=== PATIENT | male | born 1975 | race Two or more races ===

== ENCOUNTER 2025-08-12 06:52 | Emergency (ER) | payer OTHER ==
[~2025-08-12] VITALS: Ht 172.7 cm; Wt 100.0 kg
--- NOTE | 2025-08-12 07:28 | ED.PDOC ---
HPI Comments This is a 49 year-old male who presents to the ED with a chief complaint of substernal chest pain with associated L shoulder pain as of yesterday. Patient reports high blood pressure upon arrival, 192/121. Patient states he is not currently taking any medication for HTN. Patient has no further complaints at this time and otherwise denies other associated symptoms of abdominal pain, migraine, dizziness, slurred speech, palpitations, or fever. Time Seen by MD: 07:18 Reviewed Notes: Medications, Allergies Information Source: Patient Mode of Arrival: Ambulatory Severity: Moderate Timing: Days Duration: Since onset Prehospital treatment: None Location: Substernal Radiation: Shoulder (L) Onset: At Rest, With Light Exertion, With Heavy Exertion Past Medical History PAST MEDICAL HISTORY: Denies Surgical History (Other): L Ankle Surgery Family History Family History: Reviewed,noncontributory to illness, No family hx of Cancer, No family hx of DM, No family hx of Heart lam, No family hx of HTN, No family hx ofKidney lam, No family hx of Liver lam, No family hx of Lung lam, No family hx of Stroke Social History Smoker: Non-Smoker Alcohol: Denies ETOH Use Drugs: Denies Drug Use Lives In: Home Constitutional: denies: chills, diaphoresis, fatigue, fever, malaise, sweats, weakness, others EENTM: denies: blurred vision, double vision, ear bleeding, ear discharge, ear drainage, ear pain, ear ringing, eye pain, eye redness, hearing loss, mouth pain, mouth swelling, nasal discharge, nose bleeding, nose congestion, nose pain, photophobia, tearing, throat pain, throat swelling, voice changes, others Respiratory: denies: cough, hemoptysis, orthopnea, SOB at rest, shortness of breath, SOB with excertion, stridor, wheezing, others Cardiovascular: reports: chest pain; denies: dizzy spells, diaphoresis, Dyspnea on exertion, edema, irregular heart beat, left arm pain, lightheadedness, palpitations, PND, syncope, others Gastrointestinal: denies: abdomen distended, abdominal pain, blood streaked bowels, constipated, diarrhea, dysphagia, difficulty swallowing, hematemesis, melena, nausea, poor appetite, poor fluid intake, rectal bleeding, rectal pain, vomiting, others Genitourinary: denies: burning, dysuria, flank pain, frequency, hematuria, incontinence, penile discharge, penile sore, pain, testicle pain, testicle swelling, urgency, others Neurological: denies: dizziness, fainting, headache, left sided numbness, left sided weakness, numbness, paresthesia, pre-existing deficit, right sided numbness, right sided weakness, seizure, speech problems, tingling, tremors, weakness, others Musculoskeletal: reports: others (L Shoulder Pain ); denies: back pain, gout, joint pain, joint swelling, muscle pain, muscle stiffness, neck pain Integumetry: denies: bruises, change in color, change in hair/nails, dryness, laceration, lesions, lumps, rash, wounds, others Allergic/Immunocompromised: denies: Difficulty Healing, Frequent Infections, Hives, Itching, others Hematologic/Lymphatic: denies: anemia, blood clots, easy bleeding, easy bruising, swollen glands, others Endocrine: denies: excessive hunger, excessive sweating, excessive thirst, excessive urination, flushing, intolerance to cold, intolerance to heat, unexplained weight gain, unexplained weight loss, others Psychiatric: denies: anxiety, bipolar disorder, depression, hopeless, panic disorder, schizophrenia, sleepless, suicidal, others All Other Systems: Reviewed and Negative Physical Exam General Appearance: Moderate Distress HEENT: Normal ENT Inspection, Pharynx Normal, TMs Normal Neck: Full Range of Motion, Non-Tender, Normal, Normal Inspection Respiratory: Chest Non-Tender, Lungs Clear, No Accessory Muscle Use, No Respiratory Distress, Normal Breath Sounds Cardiovascular: Tachycardia Breast Exam: Deferred Gastrointestinal: No Organomegaly, Non Tender, No Pulsatile Mass, Normal Bowel Sounds, Soft Genitalia: Deferred Pelvic: Deferred Rectal: Deferred Extremities: No calf tenderness, Normal capillary refill, Normal inspection, Normal range of motion, Non-tender, No pedal edema Musculoskeletal : Apperance: Normal Neurologic: Alert, java xml developer II-XII nml as Tested, No Motor Deficits, Normal Affect, Normal Mood, No Sensory Deficits Cerebellar Function: Normal Reflexes: Normal Skin: Dry, Normal Color, Warm Peripheral Pulses: 3+ Radial (R), 3+ Radial (L) Lymphatic: No Adenopathy EKG EKG : Pulse Rate (adult): 109 [place]: Normal Cardiac Rhythm: ST Block: None Hypertrophy: None ST: Normal Was a procedure done? Was a procedure done?: No CP Differential Dx Differential Diagnosis: A-fib, A-Flutter, Angina, Anxiety / Panic Attack, Atrial Dysrhythmia, Electrolyte Disorder, Sinus Tachycardia Differential Diagnosis: HTN Essential Differential Diagnosis: Angina, Chest Wall Pain X-Ray, Labs, Meds, VS Vital Signs Date Time Temp Pulse Resp B/P (MAP) Pulse Ox O2 Delivery O2 Flow Rate FiO2 08/12/25 10:59 76 18 124/85 (98) 96 08/12/25 10:20 124/85 08/12/25 08:00 98.0 89 89 177/107 (130) 99 98.0 08/12/25 07:59 99 08/12/25 07:50 98.0 107 20 178/114 (135) 95 98.0 08/12/25 07:46 178/114 08/12/25 07:40 89 17 99 Room Air* 0 21 08/12/25 07:28 109 08/12/25 06:52 97.1 135 18 192/121 100 97.1 Lab Test 08/12/25 10:32 08/12/25 09:02 08/12/25 07:34 Range/Units Troponin I High Sensitivity 5 4 4 </=54 ng/L White Blood Count 7.3 4.4-10.8 10^3/uL Red Blood Count 5.20 4.5-5.90 10^6/uL Hemoglobin 16.3 13.5-17.5 g/dL Hematocrit 46.4 41.0-53.0 % Mean Corpuscular Volume 89.2 80.0-100.0 fL Mean Corpuscular Hemoglobin 31.4 28.0-32.0 pg Mean Corpuscular Hemoglobin Concent 35.2 32.0-36.0 g/dL Red Cell Distribution Width 12.2 11.8-14.3 % Platelet Count 279 140-450 10^3/uL Mean Platelet Volume 7.7 6.9-10.8 fL Neutrophils (%) (Auto) 66.6 37.0-80.0 % Lymphocytes (%) (Auto) 19.8 10.0-50.0 % Monocytes (%) (Auto) 11.2 0.0-12.0 % Eosinophils (%) (Auto) 1.9 0.0-7.0 % Basophils (%) (Auto) 0.5 0.0-2.0 % Neutrophils # (Auto) 4.8 1.6-8.6 10 ^3/uL Lymphocytes # (Auto) 1.4 0.4-5.4 10 ^3/uL Monocytes # (Auto) 0.8 0-1.3 10 ^3/uL Eosinophils # (Auto) 0.1 0-0.8 10 ^3/uL Basophils # (Auto) 0 0-0.2 10 ^3/uL Nucleated Red Blood Cells 0.1 % Sodium Level 137 136-145 mmol/L Potassium Level 3.3 L 3.5-5.1 mmol/L Chloride Level 104 98-107 mmol/L Carbon Dioxide Level 23 20-31 mmol/L Anion Gap 10 5-15 Blood Urea Nitrogen 18 9-23 mg/dL Creatinine 0.96 0.700-1.30 mg/dL Glomerular Filtration Rate Calc 98 >90 mL/min BUN/Creatinine Ratio 18.8 10.0-20.0 Serum Glucose 100 74-106 mg/dL Calcium Level 9.2 8.7-10.4 mg/dL Current Medications Medications (Trade) Dose Ordered Sig/Gaston Route Start Time Stop Time Status Last Admin Clonidine HCl (Catapres Tablet) 0.2 mg ONCE ONCE PO 08/12/25 07:30 08/12/25 07:31 DC 08/12/25 07:46 Patient alert. Complaining of chest pain. Vitals stable. Answering questions. EKG reviewed does show sinus tachycardia. Blood pressure elevated. He does not take any medication. Was given clonidine. Continues to have discomfort. Was given aspirin. Explained to the patient. Continue monitoring. Images Reviewed?: Images reviewed and evaluated by me Time of 1ST Reevaluation: 08:20 Reevaluation 1ST: Unchanged Patient Education/Counseling: Diagnosis, Treatment Family Education/Counseling: No Family Present SEPSIS Sepsis Screen Physician Orders Chest Portable (08/12/25 07:22) Electrocardigram (08/12/25 09:48) Electrocardigram (08/12/25 10:48) Vital Signs Date Time Temp Pulse Resp B/P (MAP) Pulse Ox O2 Delivery O2 Flow Rate FiO2 08/12/25 10:59 76 18 124/85 (98) 96 08/12/25 10:20 124/85 08/12/25 08:00 98.0 89 89 177/107 (130) 99 98.0 08/12/25 07:59 99 08/12/25 07:50 98.0 107 20 178/114 (135) 95 98.0 08/12/25 07:46 178/114 08/12/25 07:40 89 17 99 Room Air* 0 21 08/12/25 07:28 109 08/12/25 06:52 97.1 135 18 192/121 100 97.1 Laboratory Tests Test 08/12/25 07:34 White Blood Count 7.3 10^3/uL (4.4-10.8) Medications Medications Dose Ordered Sig/Gaston Route Start Time Stop Time Status Last Admin Dose Admin Clonidine HCl 0.2 mg ONCE ONCE PO 08/12/25 07:30 08/12/25 07:31 DC 08/12/25 07:46 Departure 1 Departure Time of Disposition: 07:51 Impression: Primary Impression: Hypertensive emergency Additional Impression: Chest pain of unknown etiology Disposition: ADMITTED INPATIENT Admit to: Med Surg Condition: Guarded Critical Care Note Critical Care Time?: Yes (90 min-critical care time only) Stability Stability form required: No Heart Score Heart Score: Heart Score Response (Comments) Value History Slightly Suspicious 0 EKG Normal 0 Age 45-64 1 Risk Factors 1 or 2 risk factors 1 Troponin Normal limit 0 Total 2 I personally scribed for LIDA AVERY MD ([email or web address]) on 08/12/25 at 07:28. Electronically submitted by Lata Christopher ([email or web address]). I personally scribed for LIDA AVERY MD ([email or web address]) on 08/12/25 at 07:31. Electronically submitted by Lata Christopher ([email or web address]). I personally scribed for LIDA AVERY MD ([email or web address]) on 08/12/25 at 07:38. Electronically submitted by Lata Christopher ([email or web address]). I personally scribed for LIDA AVERY MD ([email or web address]) on 08/12/25 at 08:29. Electronically submitted by Ltaa Christopher ([email or web address]). LIDA AVERY MD Aug 12, 2025 07:28
[2025-08-12 07:40] VITALS: PULSE 89; RESP 17; O2SAT 99
[2025-08-12 07:44] LABS: Hematocrit 46.4 % (41.0-53.0); Hemoglobin 16.3 g/dL (13.5-17.5); Mean Corpuscular Hemoglobin 31.4 pg (28.0-32.0); Mean Corpuscular Volume 89.2 fL (80.0-100.0); Nucleated Red Blood Cells % 0.1 %
[2025-08-12 07:51] LABS: Chloride 104 mmol/L (98-107); Sodium 137 mmol/L (136-145)
[2025-08-12 07:52] LABS: Anion Gap 10 (5-15); Calcium 9.2 mg/dL (8.7-10.4); Carbon Dioxide 23 mmol/L (20-31)
[2025-08-12 07:53] LABS: Potassium 3.3 mmol/L (3.5-5.1)
[2025-08-12 07:57] LABS: BUN/Creatinine Ratio 18.8 (10.0-20.0); Blood Urea Nitrogen 18 mg/dL (9-23); Glucose 100 mg/dL (74-106)
--- NOTE | 2025-08-12 08:23 | DVH ---
CHEST RADIOGRAPH Indication: sob Technique: Single frontal view of the chest was obtained Comparison: None FINDINGS: Lines and Tubes: None Lungs: No focal consolidation. Pleura: No effusion. No pneumothorax. Cardiomediastinal contours: Unremarkable Bones: No acute osseous abnormality. IMPRESSION: 1. No acute cardiopulmonary disease.
[2025-08-12] MEDS ORDERED: NITROGLYCERIN 0.4 MG SL TAB SL ONE (12:30)
[2025-08-12 15:30] VITALS: BP 128/93; PULSE 88; RESP 15; TEMP 98; O2SAT 98
--- NOTE | 2025-08-15 11:48 | ECG ---
[facility] Test Date: 2025-08-12 Test Time: 07:00:46 Pat Name: FOSTER DOMÍNGUEZ Department: Room: Gender: M [employer] Associate: : 1975 Requested By: LIDA AVERY Order Number: [id number] Reading MD: Keshawn Rider Measurements Intervals [place] Rate: 109 P: 55 FL: 153 QRS: 9 QRSD: 96 T: 22 QT: 342 QTc: 461 Interpretive Statements Sinus tachycardia Electronically Signed On 08-15-2025 14:56:49 PDT by Keshawn Rider Please click the below link to view image of tracing.
--- NOTE | 2025-08-15 11:49 | ECG ---
[facility] Test Date: 2025-08-12 Test Time: 07:59:14 Pat Name: FOSTER DOMÍNGUEZ Department[facility] Patient [id number] Room: Gender: M Mult Au Matic Operator: NINI : 1975 Requested By: LIDA AVERY Order Number: [id number] Reading MD: Keshawn Rider Measurements Intervals [place] Rate: 99 P: 61 CO: 155 QRS: 22 QRSD: 94 T: 24 QT: 356 QTc: 457 Interpretive Statements Sinus rhythm Electronically Signed On 08-15-2025 14:56:56 PDT by Keshawn Rider Please click the below link to view image of tracing.
== END 2025-08-12 16:01 | disposition short-term general hospital (02) ==
LOC: ER 06:52
DX: I16.1 Hypertensive emergency (principal); R07.2 Precordial pain; Z98.890 Other specified postprocedural states
CPT/HCPCS: 36415; 71045; 80048; 84484; 85025; 93005